=== PATIENT | male | born 1990 | race Caucasian/White ===

== ENCOUNTER 2021-06-28 10:32 | Emergency (ER) | payer OTHER ==
--- NOTE | 2021-06-28 10:47 | ED Physician Documentation ---
PD HPI CHEST PAIN - Stated complaint Stated Complaint: SOA,COUGH,CONGESTION - Chief complaint Chief Complaint: Cardiac - History obtained from History obtained from: Patient - Additional information Additional information: 31-year-old gentleman previously healthy. Does have a history of tobacco use, but quit a few months ago. For the last 2 days he has had sort of short shortness of breath and like a weight is on his chest associated with occasional "attacks" where he feels like he has to breathe hard and through his mouth. No radiation of the chest pressure. No pedal edema or calf pain. Review of Systems Ten Systems: 10 systems reviewed and negative Constitutional: denies: Fever, Chills Cardiac: denies: Palpitations, Pedal edema, Calf pain Respiratory: denies: Hemoptysis, Wheezing PD PAST MEDICAL HISTORY - Past Medical History Cardiovascular: None Respiratory: None Neuro: None Endocrine/Autoimmune: None GI: None : None HEENT: None Psych: None Musculoskeletal: None Derm: None - Past Surgical History Past Surgical History: No - Present Medications Home Medications: Ambulatory Orders Medication Instructions Recorded Confirmed Albuterol Sulf [Ventolin Hfa 1 - 2 puffs INH Q4HR PRN #1 inhaler 06/28/21 Inhaler] - Allergies Allergies/Adverse Reactions: Allergies Allergy/AdvReac Type Severity Reaction Status Date / Time No Known Drug Allergies Allergy Verified 06/28/21 10:39 - Social History Does the pt smoke?: No Smoking Status: Never smoker Does the pt drink ETOH?: Yes - Immunizations Immunizations are current?: Yes - POLST Patient has POLST: No PD ED PE NORMAL - Vitals Vital signs reviewed: Yes - General General: Alert and oriented X 3, No acute distress - HEENT HEENT: PERRL, EOMI - Neck Neck: Supple, no meningeal sign, No bony TTP - Cardiac Cardiac: RRR, No murmur - Respiratory Respiratory: No respiratory distress, Clear bilaterally - Abdomen Abdomen: Soft, Non tender - Back Back: No CVA TTP, No spinal TTP - Derm Derm: Normal color, Warm and dry - Extremities Extremities: No edema, No calf tenderness / cord - Neuro Neuro: Alert and oriented X 3, Normal speech Results - Vitals Vitals: Vital Signs - 24 hr 06/28/21 06/28/21 06/28/21 10:35 10:51 12:04 Temperature 36.6 C 36.4 C L Heart Rate 67 80 78 Respiratory 16 12 12 Rate Blood Pressure 128/77 128/77 125/78 O2 Saturation 99 100 100 Oxygen O2 Source Room air - EKG (time done) 1040 Rate: Rate (enter#) (73) Rhythm: NSR [place]: Normal Intervals: Normal NC QRS: Normal Ischemia: Non specific changes (There is submillimeter concave ST elevation in the inferior leads which is nonspecific.) Compare to prior EKG: Old EKG unavailable Computer interpretation: Agree with computer - Labs Labs: Laboratory Tests 06/28/21 06/28/21 06/28/21 10:54 10:54 10:54 WBC 6.2 RBC 4.54 L Hgb 13.8 L Hct 40.1 L MCV 88.3 MCH 30.4 MCHC 34.4 RDW 11.9 L Plt Count 178 MPV 9.6 Neut # (Auto) 3.4 Lymph # (Auto) 2.1 [place] # (Auto) 0.5 Eos # (Auto) 0.2 Baso # (Auto) 0.0 Absolute Nucleated RBC 0.00 Nucleated RBC % 0.0 Sodium 139 Potassium 4.1 Chloride 104 Carbon Dioxide 27 Anion Gap 8.0 BUN 14 Creatinine 0.8 Estimated GFR (MDRD) 114 Glucose 102 H Calcium 9.3 Total Bilirubin 1.2 H AST 24 ALT 43 Alkaline Phosphatase 47 Troponin I High Sens < 2.3 L Total Protein 7.3 Albumin 4.4 Globulin 2.9 Albumin/Globulin Ratio 1.5 Lipase 36 - Rads (name of study) 1v cxr Radiology: EMP read contemporaneously (NAD) PD MEDICAL DECISION MAKING - ED course ED course: 31-year-old gentleman with atypical chest pain, biomarkers negative. He feels like it is probably his anxiety and that may well be the case. Departure - Departure Disposition: 01 Home, Self Care Clinical Impression: Atypical chest pain Condition: Good Record reviewed to determine appropriate education?: Yes Instructions: ED Chest Pain Atypical Unkn Cause Prescriptions: Albuterol Sulf [Ventolin Hfa Inhaler] 1 - 2 puffs INH Q4HR PRN #1 inhaler PRN Reason: Shortness Of Air/Wheezing Comments: Call your doctor to arrange a follow-up appointment, make the next available appointment. In the interim, return anytime if worse or if new symptoms develop. Discharge Date/Time: 06/28/21 12:05
[2021-06-28 10:59] LABS: BASOPHILS % (AUTO) 0.6 %; EOSINOPHILS # (AUTO) 0.2 10^3/uL (0.0-0.7); EOSINOPHILS % (AUTO) 3.8 %; HCT - HEMATOCRIT 40.1 % (42.0-52.0); HGB - HEMOGLOBIN 13.8 g/dL (14.0-18.0); LYMPHOCYTES # (AUTO) 2.1 10^3/uL (1.5-3.5); LYMPHOCYTES % (AUTO) 32.9 %; MEAN CORPUSCULAR HEMOGLOBIN 30.4 pg (27.0-31.0); MEAN CORPUSCULAR HGB CONC 34.4 g/dL (32.0-36.0); MEAN CORPUSCULAR VOLUME 88.3 fL (80.0-94.0); MEAN PLATELET VOLUME 9.6 fL (7.4-11.4); MONOCYTES # (AUTO) 0.5 10^3/uL (0.0-1.0); MONOCYTES % (AUTO) 8.3 %; NEUTROPHILS # (AUTO) 3.4 10^3/uL (1.5-6.6); NEUTROPHILS % (AUTO) 54.2 %; PLT - PLATELET COUNT 178 10^3/uL (130-450); RED BLOOD COUNT 4.54 10^6/uL (4.70-6.10); RED CELL DISTRIBUTION WIDTH 11.9 % (12.0-15.0); WHITE BLOOD COUNT 6.2 x10^3/uL (4.8-10.8)
--- NOTE | 2021-06-28 11:15 | XRAY Report ---
PROCEDURE: Chest 1 View X-Ray INDICATIONS: Chest Pain TECHNIQUE: One view of the chest was acquired. COMPARISON: None FINDINGS: Surgical changes and devices: None. Lungs and pleura: No pleural effusions or pneumothorax. Lungs are clear. Mediastinum: Mediastinal contours appear normal. Heart size is normal. Bones and chest wall: No suspicious bony lesions. Overlying soft tissues appear unremarkable. IMPRESSION: No acute cardiopulmonary disease process. Reviewed by: Yany Beard MD, PhD on 06/28/2021 11:14 AM PDT Approved by: Yany Beard MD, PhD on 06/28/2021 11:14 AM PDT Station ID: [id number]
[2021-06-28 11:18] LABS: ALBUMIN 4.4 g/dL (3.2-5.5); ALBUMIN/GLOBULIN RATIO 1.5 (1.0-2.2); BILIRUBIN,TOTAL 1.2 mg/dL (0.2-1.0); CALCIUM 9.3 mg/dL (8.5-10.3); CREATININE 0.8 mg/dL (0.6-1.2); POTASSIUM 4.1 mmol/L (3.5-5.0); TOTAL PROTEIN 7.3 g/dL (6.7-8.2)
[2021-06-28 12:05] VITALS: BP 125/78
== END 2021-06-28 12:05 | disposition home or self-care (01) ==
LOC: ED 10:32
DX: R07.89 Other chest pain (principal)
CPT/HCPCS: 36415; 80053; 83690; 84484; 85025; 93005; 99284

== ENCOUNTER 2022-05-07 01:40 | Emergency (ER) | payer OTHER ==
[2022-05-07 01:58] VITALS: BP 117/79
== END 2022-05-07 01:58 | disposition left against medical advice (07) ==
LOC: ED 01:40
DX: Z53.21 Procedure and treatment not carried out due to patient leaving prior to being seen by health care provider (principal)
CPT/HCPCS: 93005